=== PATIENT | male | born 1945 | race Caucasian/White ===

== ENCOUNTER → 2017-07-22 | Outpatient (CLI) | payer MEDICARE, OTHER ==
--- NOTE | 2017-07-23 11:07 | RAD ---
EXAM DESCRIPTION: KUB CLINICAL HISTORY: 72 years Male, CALCULUS OF KIDNEY COMPARISON: None. FINDINGS: There are tiny bilateral renal calculi. One or 2 small pelvic calcifications are noted and probably represent phleboliths, but distal ureteral calculus is not excluded. Is an old L1 compression fracture. Degenerative changes at L4-5. IMPRESSION: Bilateral nephrolithiasis with pelvic phleboliths versus distal ureteral calculus. If clinically suspicious of a ureteral calculus, noncontrast CT is recommended. L1 compression fracture, questionable acuity. If clinically suspicious of acute compression fracture, MRI is suggested. Degenerative changes including degenerative disc disease at L4-5. Electronically signed by: Naman Monsivais MD 07/23/2017 11:06 AM [facility]
== END ==
LOC: RAD 13:58
PROVIDERS: ATTEND Urology
DX: N20.0 Calculus of kidney (principal); I87.8 Other specified disorders of veins

== ENCOUNTER → 2018-06-09 | Outpatient (CLI) | payer MEDICARE, OTHER ==
--- NOTE | 2018-06-10 08:23 | RAD ---
EXAM: KUB CLINICAL HISTORY: МАРИНА RENAL STONES COMPARISON STUDY: July 22, 2017 TECHNICAL: Single view of the abdomen FINDINGS: There are multiple bilateral intrarenal calculi. The calcifications are more numerous within the left kidney. The largest single calcification is in the mid to lower pole of the left kidney and measures 8.6 mm. The largest visible calcification within the right kidney is 5.5 mm. There is a calcific density at the margin of the left sacrum and is difficult to determine if this is a ureteral calculus or calcification associated with the sacrum. A calcification in upper pole of the left kidney on the prior study is less obvious and could be within the left mid to distal ureter. Moderate stool seen throughout the colon. There are significant degenerative disc changes of the lower lumbar spine and a mild compression deformity of the L1 vertebral body. IMPRESSION: 1. Multiple bilateral intrarenal calculi. 2. Probable left distal ureteral calculus at the margin of the left sacrum. 3. Degenerative disc changes of the lower lumbar spine and a mild compression deformity of L1. Electronically signed by: Bharathi Suárez MD 06/10/2018 7:41 AM CDT
== END ==
LOC: RAD 13:39
PROVIDERS: ATTEND Urology
DX: N20.2 Calculus of kidney with calculus of ureter (principal); M51.36 Other intervertebral disc degeneration, lumbar region

== ENCOUNTER → 2019-03-09 | Outpatient (CLI) | payer MEDICARE, OTHER ==
--- NOTE | 2019-03-09 14:45 | RAD ---
EXAM DESCRIPTION: KUB CLINICAL HISTORY: 73 years Male, Kidney Stones Bilateral COMPARISON: Radiographs dated 06/09/2018. TECHNIQUE: 1 view of the abdomen was performed. FINDINGS: Multiple air distended bowel loops are identified with no evidence of bowel obstruction. Moderate amount of fecal material is identified. Persistent calculi overlying both kidneys, unchanged compared to prior examination. Calcifications in the left hemipelvis could represent ureteral calculi. IMPRESSION: Persistent bilateral renal calculi. Calcifications in the left hemipelvis could represent ureteral calculi. Electronically signed by: Angelica Shirley MD 03/09/2019 2:42 PM CDT
== END ==
LOC: RAD 13:34
PROVIDERS: ATTEND Urology
DX: N20.0 Calculus of kidney (principal)

== ENCOUNTER → 2019-08-31 | Outpatient (CLI) | payer MEDICARE, OTHER ==
--- NOTE | 2019-08-31 15:55 | RAD ---
EXAM DESCRIPTION: KUB CLINICAL HISTORY: 74 years Male, KIDNEY STONES COMPARISON: March 09, 2019. TECHNIQUE: 1 view of the abdomen was performed. FINDINGS: Single supine radiograph of the abdomen demonstrates multiple radiopaque densities projecting over the bilateral flank regions likely represents renal calculi as noted on prior radiograph. Slight interval improvement of the right-sided in the number of radiopaque densities could represent interval passage of one of the stones. Again noted are multiple radiopaque densities in the left hemipelvis which could represent ureteral stones. Interval development of new radiopaque densities in the right hemipelvis could represent calculi within the right ureter/urinary bladder. Nonobstructive bowel gas pattern. IMPRESSION: 1. Persistent bilateral radiopaque densities projecting over the flank regions likely represents renal calculi in comparison to prior chest radiograph dated March 09, 2019. Slight interval improvement in the number of radiopaque densities on the right side could represent interval passage. 2. Persistent radiopaque densities in the left hemipelvis likely represent stones in the ureter. 3. Interval development of new radiopaque densities in the right hemipelvis likely represents right ureteral/urinary bladder stones. Electronically signed by: Houston Narvaez MD 08/31/2019 3:53 PM MANAGER OF SUSTAINABILITY
== END ==
LOC: RAD 12:48
PROVIDERS: ATTEND Urology
DX: N20.0 Calculus of kidney (principal)

== ENCOUNTER → 2019-10-22 | Outpatient (CLI) | payer MEDICARE ==
--- NOTE | 2019-10-22 18:38 | CT ---
EXAM DESCRIPTION: Head CLINICAL HISTORY: CONFUSION. R41.0 COMPARISON: None available TECHNIQUE: Noncontrast head CT was performed with routine protocol. FINDINGS: Normal denton-white matter differentiation. Ventricles and sulci are prominent consistent with age-related cerebral volume loss. Low density white matter indicates chronic microvascular ischemic disease. Old basal ganglia lacunar infarcts. No high density hemorrhage, focal edema or shift of the midline. No sulcal effacement. Normal orbital contents. Basilar cisterns appear clear. Intact calvarium with no fracture or lytic lesion. Normal aeration of tympanic cavities and mastoid air cells. No fluid levels in the paranasal sinuses. Skull base appears intact. Symmetrical internal auditory canals. Coronal and sagittal reformatted images confirm the findings. IMPRESSION: No acute intracranial pathologic process. This exam was performed according to our departmental dose-optimization program, which includes automated exposure control, adjustment of the mA and/or kV according to patient size and/or use of iterative reconstruction technique. Total DLP equals 967.47 mGycm. Electronically signed by: Pohng Sun MD 10/22/2019 6:36 PM [facility]
== END ==
LOC: CT 17:00
PROVIDERS: ATTEND Family Medicine
DX: R41.0 Disorientation, unspecified (principal)

== ENCOUNTER 2019-10-27 14:42 | Emergency (ER) | payer MEDICARE ==
--- NOTE | 2019-10-27 15:21 | ED.PDOC ---
History of Present Illness - General Chief Complaint: Neuro Symptoms/Deficits Stated Complaint: lethargic,acting different Time Seen by Provider: 10/27/19 15:07 Source: patient, family Exam Limitations: no limitations - History of Present Illness Initial Comments: 2 WEEKS, FAMILY STATES HE'S NOT HIS USUAL ALERT SELF. USUALLY HE IS QUICK WITTED BUT HAS BEEN MORE SLUGGISH THE PAST 2 WEEKS. SAW PCP, ORDERED CT 5 D AGO WHICH WAS NEG. PT DENIES PAIN, AMS, SX, EXCEPT UR URGENCY AND INCONTINENCE. Severity: moderate Improving Factors: nothing Worsening Factors: nothing Associated Symptoms: denies symptoms Allergies/Adverse Reactions: Allergies NO KNOWN ALLERGY Allergy (Verified 10/27/19 15:02) Home Medications: Ambulatory Orders Allopurinol 300 mg PO DAILY 10/27/19 B-Complex W/Biotin & Folic Aci [Super B-Complex] 1 tab PO DAILY 10/27/19 Cholecalciferol [Vitamin D] 5,000 unit PO DAILY 10/27/19 Cinnamon 500 mg PO DAILY 10/27/19 Duloxetine HCl 60 mg PO BEDTIME 10/27/19 Gabapentin 300 mg PO BID 10/27/19 Glimepiride 2 mg PO DAILY 10/27/19 Isosorbide Mononitrate [Isosorbide Mononitrate ER] 60 mg PO BEDTIME 10/27/19 Lisinopril 40 mg PO DAILY 10/27/19 Metformin HCl [Metformin Hydrochloride] 500 mg PO BID 10/27/19 Multiple Vitamin [Multivitamins] 1 cap PO DAILY 10/27/19 Pantoprazole Sodium 20 mg PO DAILY 10/27/19 Pravastatin Sodium 20 mg PO DAILY 10/27/19 Review of Systems - Review of Systems Constitutional: Denies: chills, fever, weakness EENTM: Denies: blurred vision, ear pain, nose congestion, throat pain Respiratory: Denies: cough, short of breath Cardiology: Denies: chest pain, palpitations Gastrointestinal/Abdominal: Denies: abdominal pain, nausea Genitourinary: States: frequency. Denies: dysuria Musculoskeletal: Denies: back pain, neck pain Skin: Denies: lesions, rash Neurological: Denies: depressed, headache, paresthesia, weakness Endocrine: Denies: intolerance to cold, intolerance to heat Hematologic/Lymphatic: Denies: easy bleeding, easy bruising All other Systems: Reviewed and Negative Past Medical History (General) - Patient Medical History Hx Stroke: No Hx Congestive Heart Failure: No Hx Hypertension: Yes Hx Diabetes: Yes - Vaccination History Hx Influenza Vaccination: No Hx Pneumococcal Vaccination: Yes - Social History Hx Tobacco Use: Yes Family Medical History - Family History Father Family History: Unknown Living Status: Unknown Physical Exam - Physical Exam General Appearance: Alert, No apparent distress Eye Exam: bilateral normal ENT Exam: normal ENT inspection, hearing grossly normal, TMs normal, pharynx normal Neck: full range of motion, supple, normal inspection Respiratory: lungs clear, normal breath sounds Cardiovascular/Chest: regular rate, rhythm, no murmur Peripheral Pulses: radial,right: 2+, radial,left: 2+ Gastrointestinal/Abdominal: normal bowel sounds, non tender, soft Back Exam: normal inspection, no CVA tenderness Extremities Exam: normal range of motion, no evidence of injury Mental Status: alert, oriented x 3 barrel tester Exam: other - CN 2-12 IN TACT. Coordination/Gait: normal finger to nose, normal gait, negative Romberg's sign Motor/Sensory: no motor deficit, no sensory deficit, no pronator drift Skin Exam: normal color, warm/dry Progress - Progress Progress: 10/27/19 16:05 NO ABVIOUS CAUSE FOR PT'S DECREASED MENTAL CLARITY X 2 WKS. THE PT DOES NOT PERCEIVE OR SENSE ANY AMS. IT'S HIS FAMILY WHO SUSPECT. UA NEG. CBC NEB. CXR NEG. HEAD CT VIA PCP NEG. CMP SHOWS MILD HYPERKALEMIA (5.6) WHICH COULD BE FROM THE LISINOPRIL, BUT NO EKG CHANGES, AND NOT HIGH ENOUGH TO ACCOUNT FOR FAMILY'S PERCEPTION OF PT'S SX. THERE IS NO ACUTE DELIRIUM OR AMS UPON EXAM. NO STROKE S/SX PER EXAM. SAFE FOR DC TO HOME WITH FAMILY. WILL INSTRUCT TO F/U W/ PCP TO EVAL FOR ANY OTHER CHRONIC, INSIDIOUS EXPLANATION SUCH EARLY DEMENTIA, WHICH IS NOT PRESENT DURING THIS ER VISIT. 10/27/19 16:10 10/27/19 16:20 FAMILY STATES PT HAS A F/U WITH PCP AND NEUROLOGIST ON NOV 17 FOR FURTHER EVALUATION. - EKG/XRAY/CT EKG: Sinus, no ST T wave changes Departure - Departure Clinical Impression: Sluggishness Disposition: Discharge to Home or Self Care Condition: Good Departure Forms: ED Discharge - Pt. Copy, Patient Portal Self Enrollment Diet: resume usual diet Activity: increase activity as tolerated Referrals: GM NOE MD [Primary Care Provider] - 1-2 Weeks Home Medications: Ambulatory Orders Allopurinol 300 mg PO DAILY 10/27/19 B-Complex W/Biotin & Folic Aci [Super B-Complex] 1 tab PO DAILY 10/27/19 Cholecalciferol [Vitamin D] 5,000 unit PO DAILY 10/27/19 Cinnamon 500 mg PO DAILY 10/27/19 Duloxetine HCl 60 mg PO BEDTIME 10/27/19 Gabapentin 300 mg PO BID 10/27/19 Glimepiride 2 mg PO DAILY 10/27/19 Isosorbide Mononitrate [Isosorbide Mononitrate ER] 60 mg PO BEDTIME 10/27/19 Lisinopril 40 mg PO DAILY 10/27/19 Metformin HCl [Metformin Hydrochloride] 500 mg PO BID 10/27/19 Multiple Vitamin [Multivitamins] 1 cap PO DAILY 10/27/19 Pantoprazole Sodium 20 mg PO DAILY 10/27/19 Pravastatin Sodium 20 mg PO DAILY 10/27/19 Additional Instructions: Please keep the appointment with your regular doctor and neurologist on November 17 for further evaluation.
--- NOTE | 2019-10-27 15:54 | RAD ---
EXAM DESCRIPTION: Chest,1 View CLINICAL HISTORY: 2 WKS AMS. COMPARISON: None. IMPRESSION: Single AP portable upright view of the chest shows mild enlargement of cardiac silhouette without pulmonary vascular congestion. . Lungs are normally aerated and clear. No obvious pleural effusion or pneumothorax is seen. Electronically signed by: Nadeem Aguilar MD 10/27/2019 3:52 PM REMARKETING MANAGER
[2019-10-27 16:26] VITALS: BP 159/95; TEMP 97.1; O2SAT 95
== END 2019-10-27 16:26 | disposition home or self-care (01) ==
LOC: ER 14:42
DX: R53.83 Other fatigue (principal); I10 Essential (primary) hypertension; E11.9 Type 2 diabetes mellitus without complications; Z87.891 Personal history of nicotine dependence; Z79.899 Other long term (current) drug therapy; Z79.84 Long term (current) use of oral hypoglycemic drugs

== ENCOUNTER 2020-02-08 11:24 | Emergency (ER) | payer MEDICARE ==
--- NOTE | 2020-02-08 11:43 | CT ---
EXAM DESCRIPTION: CT head without contrast. CLINICAL HISTORY: Neuro deficits COMPARISON: 10/22/2019 TECHNIQUE: Contiguous axial sections are obtained as per protocol. Sagittal and coronal reformations are submitted Automatic exposure control (AEC), mA and/or kV adjustment by patient size, and/or iterative reconstructive technique was used, per departmental dose optimization program, during the performance of the CT examination. FINDINGS: Ventricles, sulci and cisterns appear normal. Normal denton-white matter differentiation is noted. No evidence of intra or extra-axial focal area of encephalomalacia is noted in the right parietal periventricular deep white matter and represents a new finding since prior study. Small old lacunar infarct in the right external capsule is noted. Hemorrhage, hematoma, mass, mass effect or midline shift is noted. The posterior fossa structures appear normal. Evaluation of the posterior fossa structures is limited by beam hardening artifacts. The bony calvarium appears intact. The soft tissues of the scalp appear unremarkable. Normal appearance of the orbits are noted. The paranasal sinuses and mastoids appear normal. IMPRESSION: No acute findings. 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 If clinically ischemic CVA is suspected, MRI brain with diffusion-weighted images should be considered. Electronically signed by: Domitila Adhikari MD 02/08/2020 11:42 AM CDT
[2020-02-08] MEDS ORDERED: SODIUM CHLORIDE 0.9% (FLUSH) 10 ML SYG IV PRN (11:44)
[2020-02-08 11:45] VITALS: O2SAT 100
--- NOTE | 2020-02-08 12:18 | RAD ---
: 1945. Technique: Portable AP chest x-ray. Comparison: November 30, 2019. Clinical history: stroke like symptoms and confusion. Heart size: Heart size is mildly enlarged unchanged without vascular congestion. Lungs: Shallow inspiration. No acute consolidation. Pleura: No pleural effusion. No pneumothorax. Mediastinum and vinny: Unremarkable. Skeletal: Narrowing of the glenohumeral joints. Support tubings: None. Impression: 1. No acute findings in the chest. Electronically signed by: Jovi Ramírez MD 02/08/2020 12:17 PM CDT
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
[2020-02-08] MEDS ORDERED: cefTRIAXone SODIUM 1 GM in SODIUM CHL 0.9% 50ML MIN-BAG+ 50 ML IVPB ONE (13:48)
[2020-02-08] MEDS ORDERED: LIDOCAINE 1% 2 ML VIAL INJ ONE (15:04)
[2020-02-08 17:53] VITALS: BP 161/99; TEMP 97.2
== END 2020-02-08 17:35 | disposition short-term general hospital (02) ==
LOC: ER 11:24
DX: I63.9 Cerebral infarction, unspecified (principal); N39.0 Urinary tract infection, site not specified; T83.511A Infection and inflammatory reaction due to indwelling urethral catheter, initial encounter; E11.9 Type 2 diabetes mellitus without complications; D72.829 Elevated white blood cell count, unspecified; I10 Essential (primary) hypertension; Y92.9 Unspecified place or not applicable
CPT/HCPCS: 36415; 70450; 71045; 80053; 81001; 82550; 82553; 82948; 83605; 84484; 85025; 85610; 85730; 87040; 87086; 93005; J0696; J7050